=== PATIENT | male | born 1950 | race Caucasian/White ===

== ENCOUNTER → 2022-10-28 13:44 | Outpatient (CLI) | payer MEDICARE, OTHER, SELFPAY ==
--- NOTE | 2022-10-28 | DI.MRI.S_ITS ---
PROCEDURE: MR KNEE RT WO CON INDICATIONS: MEDIAL KNEE PAIN TECHNIQUE: Noncontrast sagittal PD fast spin echo and T2 fast spin echo with fat saturation, sagittal 3-D FLASH with fat saturation; coronal T1 spin echo and PD fast spin echo with fat saturation, and axial PD fast spin echo with fat saturation through the knee. COMPARISON: None. FINDINGS: Image quality: Excellent. Menisci: Complex oblique tear involving posterior horn of medial meniscus extending to both superior and inferior articulating surfaces. The lateral meniscus is intact. The meniscal root ligaments appear intact. Cruciate ligaments: The anterior and posterior cruciate ligaments appear intact. Medial structures: The medial collateral ligament appears mildly thickened. The posterior oblique ligament, semimembranosus tendon insertions, oblique popliteal ligament, and meniscocapsular junction appear intact. Visualized portions of the pes anserinus tendons appear normal. No abnormal bursal fluid. Lateral structures: The lateral collateral ligament, long and short heads of the biceps femoris tendon appear intact. The popliteus tendon appears normal; the popliteofibular ligament appears intact. Iliotibial band appears normal. Anterior structures: Distal quadriceps tendinosis at its superior patellar insertion is seen. The patellar tendon is intact. Patellar alignment is normal. No femoral trochlear dysplasia or ventral trochlear prominence. No edema in the infrapatellar fat pad. Bones and cartilage: Extensive marrow edema involving medial femoral condyle is seen without discrete fracture line. 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 No other area of abnormal marrow signal. Joint space: There is physiologic knee joint fluid. No Najera's cyst. Normal appearing synovial plicae are incidentally noted. IMPRESSION: 1. Bony contusion involving weight-bearing portion of medial femoral condyle. No gross acute fracture or dislocation. 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 2. Complex oblique tear involving posterior horn of medial meniscus extending to both superior and inferior articulating surfaces. The lateral meniscus is intact. 3. Distal quadriceps tendinosis. The patellar tendon is intact. 4. Very mild MCL sprain. Dictated by: Casey Galraza M.D. on 10/30/2022 at 11:08 Approved by: Casey Galarza M.D. on 10/30/2022 at 11:31
== END ==
PROVIDERS: Referring Provider Student in an Organized Health Care Education/Training Program; Visit Provider Student in an Organized Health Care Education/Training Program
DX: S83.231A Complex tear of medial meniscus, current injury, right knee, initial encounter (principal); S80.01XA Contusion of right knee, initial encounter; S83.411A Sprain of medial collateral ligament of right knee, initial encounter; M17.11 Unilateral primary osteoarthritis, right knee; M94.261 Chondromalacia, right knee; M25.561 Pain in right knee; S76.211D Strain of adductor muscle, fascia and tendon of right thigh, subsequent encounter
CPT/HCPCS: 73721

== ENCOUNTER → 2023-03-01 09:38 | Outpatient (CLI) | payer MEDICARE, OTHER, SELFPAY ==
--- NOTE | 2023-03-01 09:40 | DI.MRI.S_ITS ---
PROCEDURE: MR KNEE RT WO CON INDICATIONS: OSTEONECROSIS OF RT KNEE TECHNIQUE: Noncontrast sagittal PD fast spin echo and T2 fast spin echo with fat saturation, sagittal 3-D FLASH with fat saturation; coronal T1 spin echo and PD fast spin echo with fat saturation, and axial PD fast spin echo with fat saturation through the knee. COMPARISON: [facility], MR, MR KNEE RT WO CON, 10/28/2022, 14:01. FINDINGS: Image quality: The Menisci: The free edge of the posterior horn of the medial meniscus is blunted, which may be secondary to tear or prior meniscectomy. The small oblique tear extending to the inferior articular surface is less conspicuous. The lateral meniscus demonstrates normal morphology and internal signal. The meniscal root ligaments appear intact. Cruciate ligaments: Suspect partial-thickness tear of the proximal anterior cruciate ligament. The posterior cruciate ligament appears intact. Medial structures: There is grade I sprain of the medial collateral ligament, nonacute. The semimembranosus tendon insertions, oblique popliteal ligament, and meniscocapsular junction appear intact. Visualized portions of the pes anserinus tendons appear normal. No abnormal bursal fluid. Lateral structures: The lateral collateral ligament, long and short heads of the biceps femoris tendon appear intact. The popliteus tendon appears normal. Iliotibial band appears normal. Anterior structures: The quadriceps and patellar tendons appear intact. Patellar alignment is normal. No femoral trochlear dysplasia or ventral trochlear prominence. No edema in the infrapatellar fat pad. Bones and cartilage: No displaced fractures. There is bone marrow edema involving the medial femoral condyle consistent with bone contusions. There is a small osteochondral lesion in the medial femoral condyle (series 7, image 26). Chondromalacia patella involving the superior aspect of the lateral facet. Joint space: There is physiologic knee joint fluid. No Najera's cyst. Normal appearing synovial plicae are incidentally noted. IMPRESSION: 1. Medial meniscal tear. The free edge of the posterior horn of the medial meniscus is blunted, which may be secondary to meniscectomy. The inferior articular tear involving the inferior articular surface is less conspicuous on the current exam. 2. Question partial tear of the proximal ACL, likely chronic. 3. Grade 1 sprain of MCL, chronic. 4. There is edema in the medial femoral condyle, consistent with bone contusions. There is a small osteochondral lesion in the medial femoral condyle. 5. Chondromalacia patella. 6. Moderate knee joint effusion. Dictated by: Eddy Simmons M.D. on 03/01/2023 at 15:57 Approved by: Eddy Simmons M.D. on 03/02/2023 at 10:45
== END ==
PROVIDERS: Referring Provider Internal Medicine Sports Medicine; Visit Provider Internal Medicine Sports Medicine
DX: M87.9 Osteonecrosis, unspecified (principal); S83.241A Other tear of medial meniscus, current injury, right knee, initial encounter; S83.411A Sprain of medial collateral ligament of right knee, initial encounter; M22.41 Chondromalacia patellae, right knee; M25.461 Effusion, right knee
CPT/HCPCS: 73721

== ENCOUNTER → 2023-06-20 11:14 | Outpatient (CLI) | payer MEDICARE, OTHER, SELFPAY ==
--- NOTE | 2023-06-20 11:16 | DI.MRI.S_ITS ---
PROCEDURE: MR KNEE RT WO CON INDICATIONS: Osteonecrosis TECHNIQUE: Noncontrast sagittal PD fast spin echo and T2 fast spin echo with fat saturation, sagittal 3-D FLASH with fat saturation; coronal T1 spin echo and PD fast spin echo with fat saturation, and axial PD fast spin echo with fat saturation through the knee. COMPARISON: [facility], MR, MR KNEE RT WO CON, 03/01/2023, 10:05. FINDINGS: Image quality: Excellent. Menisci: In the medial meniscus, there is mild inner margin blunting of the meniscus body. There is mild extrusion the medial meniscus body. In the lateral meniscus, there is a small undersurface tear of the meniscus body, unchanged from prior exam. There is slight extension of the medial meniscus body into the superior gutter, unchanged from prior exam. Cruciate ligaments: The anterior and posterior cruciate ligaments appear intact. Medial structures: The medial collateral ligament appears intact. The posterior oblique ligament, semimembranosus tendon insertions, oblique popliteal ligament, and meniscocapsular junction appear intact. Visualized portions of the pes anserinus tendons appear normal. No abnormal bursal fluid. Lateral structures: The lateral collateral ligament, long and short heads of the biceps femoris tendon appear intact. The popliteus tendon appears normal; the popliteofibular ligament appears intact. The posterosuperior and anteroinferior popliteomeniscal fascicles appear intact. The arcuate and fabellofibular ligaments appear intact, on either side of the lateral inferior geniculate artery. Iliotibial band appears normal. Anterior structures: The quadriceps and patellar tendons appear intact. Suprapatellar fat pad edema. Mild infrapatellar bursitis. Bones and cartilage: There is chondral denudation of the superior aspect of the lateral patellar facet. High-grade chondral thinning of the median ridge. Mild subchondral cystic changes in the median ridge and the lateral patellar facet. Cartilage of the trochlea is grossly unremarkable. In the medial compartment, there is mild chondral thinning in the nonweightbearing portion of the femoral condyle. Cartilage in the lateral compartment is grossly well maintained. 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 Previously seen confluent marrow contusion in the medial femoral condyle has resolved. No acute fracture. Joint space: Small knee effusion. No popliteal cyst. Popliteal vasculature is unremarkable. IMPRESSION: 1. Inner margin blunting of the medial meniscus body. 2. Small tear of the lateral meniscus body, unchanged from prior exam. 3. Moderate chondrosis of the patellofemoral compartment, unchanged. 4. Interval resolution of previously seen marrow contusion in the medial femoral condyle. No osteochondral lesion. Interval development of disuse osteopenia. Dictated by: Flora Apple M.D. on 06/20/2023 at 14:12 Approved by: Flora Apple M.D. on 06/20/2023 at 14:25
== END ==
PROVIDERS: PCP Student in an Organized Health Care Education/Training Program; Referring Provider Internal Medicine Sports Medicine; Visit Provider Internal Medicine Sports Medicine
DX: S83.281A Other tear of lateral meniscus, current injury, right knee, initial encounter (principal); M94.261 Chondromalacia, right knee; M85.861 Other specified disorders of bone density and structure, right lower leg; M87.9 Osteonecrosis, unspecified
CPT/HCPCS: 73721